=== PATIENT | female | born 1960 | race Caucasian/White ===

== ENCOUNTER 2025-06-18 15:56 | Emergency (ER) | payer MEDICARE, OTHER ==
[2025-06-18 16:03] VITALS: TEMP 98
--- NOTE | 2025-06-18 16:11 | ERPHSYRPT ---
- History of Present Illness Time Seen by Provider: 06/18/25 16:11 Source: patient Exam Limitations: no limitations Physician History: This is a 64-year-old white female patient who arrives to the emergency department at the direction of her nurse practitioner Patricia Schwartz. The patient fell and hit her head 5 days ago. She has had a headache ever since. Patient underwent a CT scan of the head without contrast today. Patient has a history of hypertension and depression. The CT scan of the head without contrast findings were read by me. They include no calvarial fracture, intra or extra- axial hematoma or parenchymal territorial hypodense areas suggestive of acute ischemic insult. There are brain involutional changes. There is findings that raise the possibility of increased intracranial hypertension. The patient was sent to us for further evaluation and management. Timing/Duration: day(s) (5) Quality: aching Head Pain Location: global Severity of Pain-Max: mild Severity of Pain-Current: mild Recent Head Trauma: head trauma > 24 hrs ago Associated Symptoms: denies symptoms Previous symptoms: no prior history Allergies/Adverse Reactions: No Known Drug Allergies Allergy (Verified 06/18/25 16:05) Home Medications: carvediloL [Carvedilol] 25 mg PO DAILY 06/26/23 [History] Duloxetine HCl 60 mg PO DAILY 06/18/25 [History] Lisinopril/Hydrochlorothiazide [Lisinopril-Hctz 10-12.5 mg Tab] 1 each PO DAILY 06/18/25 [History] Travel Risk - International Travel Have you traveled outside of the country in past 3 weeks: No - Emerging Infectious Disease Are you exhibiting symptoms associated with any current EIDs: No - Review of Systems Constitutional: No Symptoms Eyes: No Symptoms Ears, Nose, & Throat: No Symptoms Respiratory: No Symptoms Cardiac: No Symptoms Abdominal/Gastrointestinal: No Symptoms Genitourinary Symptoms: No Symptoms Musculoskeletal: No Symptoms Skin: No Symptoms Neurological: Headache Psychological: No Symptoms Endocrine: No Symptoms Hematologic/Lymphatic: No Symptoms Immunological/Allergic: No Symptoms All Other Systems: Reviewed and Negative - Past Medical History Pertinent Past Medical History: Yes Neurological History: No Pertinent History Cardiac History: No Pertinent History Respiratory History: No Pertinent History Endocrine Medical History: No Pertinent History Musculoskeletal History: Arthritis Other Medical History: THUMB [facility] OA SURGERY - Past Surgical History Past Surgical History: Yes Gastrointestinal: Cholecystectomy Musculoskeletal: Other Female Surgical History: Section Other Surgical History: 2x foot surgeries. hand surgery x2. elbow surgery - Social History Drug Use: none - Nursing Vital Signs Nursing Vital Signs: Initial Vital Signs Temperature 98 F 06/18/25 16:02 Pulse Rate 65 06/18/25 16:02 Respiratory Rate 12 06/18/25 16:02 Blood Pressure 97/65 06/18/25 16:02 O2 Sat by Pulse Oximetry 98 06/18/25 16:02 Pain Scale Pain Intensity 3 - Physical Exam General Appearance: no apparent distress, alert Eye Exam: PERRL/EOMI, eyes nml inspection Ears, Nose, Throat Exam: normal ENT inspection, moist mucous membranes Neck Exam: normal inspection, non-tender, supple, full range of motion Respiratory Exam: normal breath sounds, lungs clear, airway intact, No chest tenderness, No respiratory distress Cardiovascular Exam: regular rate/rhythm, normal heart sounds, normal peripheral pulses Gastrointestinal/Abdominal Exam: soft, normal bowel sounds, No tenderness Back Exam: normal inspection, normal range of motion, No CVA tenderness, No vertebral tenderness Extremity Exam: normal inspection, normal range of motion, pelvis stable Mental Status Exam: alert, oriented x 3, cooperative bottom wheeler Exam: normal hearing, normal speech, PERRL Coordination/Gait Exam: normal gait, normal cerebellar function Motor/Sensory Exam: no motor deficit, no sensory deficit Skin Exam: normal color, warm, dry Lymphatic Exam: No adenopathy SpO2 Interpretation: normal SpO2: 98 O2 Delivery: Room Air - Course Nursing assessment & vital signs reviewed: Yes - Progress Progress: re-examined Air Movement: good Progress Note: 06/18/25 17:13 My medical decision making and assignment of moderate complexity of this patient's medical issue today is based on review of the patient's past medical history, reviewed patient medication list, reviewed patient drug allergy list, history present illness and physical findings on examination. The workup in this patient does not necessitate any additional radiographic or laboratory studies in my view. We will obtain a teleneuro consultation to determine whether or not the patient needs any further workup either in the emergency department or outpatient. Differential diagnosis includes was not limited to postconcussion syndrome, intracranial hypertension, head contusion I spoke with Dr. Brewer, the teleneurologist. He evaluated the patient and reviewed the CT scan of the head without contrast. His final decision is that this patient has a normal CT scan of the head without contrast. She does not need any further ER or outpatient workup/radiographic studies. She is to use NSAIDs for headache pain control. Blood Culture(s) Obtained: No Antibiotics given: No Counseled pt/family regarding: diagnosis, need for follow-up Medical Desision Making - Independent Historian Additional History obtained from: Spouse - Diagnostic Testing Diagnostic test were ordered, analyzed, and reviewed by me: Yes Radiological Interpretation: Reviewed by me, Teleradiologist Report - Risk of complications Low Risk: Low risk of morbidity from additional dx testing or treatment - Departure Departure Disposition: Home Clinical Impression: Headache, Fall with no significant injury, Post-concussion headache Condition: Stable Critical Care Time: No Referrals: ILENE SCHWARTZ NP [Primary Care Provider, [facility]] - Follow up/PCP as directed Additional Instructions: Continue medications as prescribed. Use NSAIDs and Tylenol, if there are no contraindications to do so, for headache control. Call your primary care provider tomorrow, 06/19/2025, to make arrangements for follow-up appointment for further evaluation management
[2025-06-18 16:19] VITALS: PULSE 60; RESP 15
--- NOTE | 2025-06-18 17:02 | PCM.CONS ---
History of Present Illness - Neuro Consultation Date of Consultation Date: 06/18/25 ED Arrival Date & Time: 06/18/25 15:56 Requesting Provider: Dr. Tony Providers: Attending Provider: ED Provider: TRUDY TONY Consulting Provider: DG QUINTEROS MD Reason for Consult: Headache, CT findings cc:: The requesting physician will be sent a copy of the consult. - Chief Complaint Patient Subjective Stated Complaint: Headace - History of Present Illness HPI: The patient is a 64F with a PMH fibromyalgia, rare stress headaches, who presents after being referred by her primary care provider for a CT Head Report that was abnormal. The patient was recently in [place]. While going down some stairs in a poorly lit area, she and her missed a step, and she fell and hit her head, particularly near the left side of the face. She did not lose consciousness. This was about 5 days ago. Since then she has had some pressure like headache that is mild to moderate in intensity, with some mild photophobia and nausea, that responds well to over the counter ibuprofen and overall improving. Does not get worse with lying flat or sitting up. No dizziness. Uses glasses for visual acuity. No focal weakness, no focal numbness, no focal paresthesias. No neck pain, no neck stiffness. No recent unexpected weight loss, no fevers, no chills, no night sweats. No prior history of cancer, stroke, intracranial problems, seizures. Review of Systems - Review of Systems Review of Systems (Narrative): Pertinent positive and negative findings as per HPI. All other systems negative. - Past Medical History Past Medical History: Yes Neurological History: No Pertinent History ENT History: No Pertinent History Cardiac History: No Pertinent History Respiratory History: No Pertinent History Endocrine Medical History: No Pertinent History Musculoskelatal History: Arthritis, Fibromyalgia GI Medical History: No Pertinent History History: No Pertinent History Pyscho-Social History: No Pertinent History Reproductive Disorders: No Pertinent History Comment: THUMB [facility] OA SURGERY - Past Surgical History Past Surgical History: Yes Neuro Surgical History: No Pertinent History Cardiac History: No Pertinent History Respiratory Surgery: No Pertinent History GI Surgical History: Cholecystectomy Genitourinary Surgical Hx: No Pertinent History Musculskeletal Surgical Hx: Other Female Surgical History: Section Other Surgical History: 2x foot surgeries. hand surgery x2. elbow surgery - Social History Smoking Status: Never smoker Exposure to second hand smoke: No Alcohol: Rarely Drug Use: none - Social Determinants of Health Will the patient participate in the screening: Yes Do you worry about a steady place to live?: No Do you have any problems with any of the following?: No known problems In the past 12 months,have you had to go without utilities?: No Have you or anyone in your house had to go without enough: No Transportation Issues: No Has anyone in your support network made you feel unsafe?: No Physical Exam - Vital Signs Vital Signs: Vital Signs - 24 hr 06/18/25 06/18/25 16:02 16:11 Temperature 98 F Pulse Rate 60 Respiratory 15 Rate Blood Pressure 97/65 Blood Pressure 97/65 [Right Arm] O2 Sat by Pulse 98 98 Oximetry - Physical Exam Tele-Neuro Physical Exam (Narrative): General: no acute distress; sitting comfortably in bed HEENT: normocephalic, atraumatic, no conjunctival icterus, no conjunctival erythema Cardiovascular: regular rate on monitor; no peripheral edema Respiratory: breathing comfortably; symmetric chest expansion Psych: appropriate affect Neurological exam: Mental Status: awake, alert, oriented to self, place, time, and situation; intact fund of knowledge and memory; intact naming and repetition; fluent speech with no errors; no neglect Cranial nerves: PERRL (done with assistance of bedside RN); EOM intact with no nystagmus; normal and symmetric sensation to light touch in V1, V2, and V3 distributions; no facial droop; no dysarthria; no dysphonia; tongue midline; intact shoulder shrug Motor: normal bulk. no muscle atrophy. No tremors. No abnormal movements No pronator drift, normal orbiting, normal finger tapping RUE: able to keep elevated for 10 seconds with no downward drift LUE: able to keep elevated for 10 seconds with no downward drift RLE: able to keep elevated for 10 seconds with no downward drift LLE: able to keep elevated for 10 seconds with no downward drift Sensory: intact and symmetric sensation to light touch in arms and legs Coordination: no dysmetria on [id number] testing Reflexes: unable to do over telemedicine Gait: deferred Results - CT Impressions CT Head w/o contrast Status: image reviewed by me, report reviewed by me (No acute abnormalities noted. No hydrocephalus, no edema, no hemorrhage, no loss of hale-white matter differentiation, no effacement of the cisterns, no assymetries.) Impressions & Recommendations - Impression Acute Ischemic Stroke: No concern for acute stroke No concern for acute neurological findings Likely mild concussion after initial TBI CT Scan findings not concerning - ED Arrival Time ED Arrival Date & Time: ED Arrival Date and Time 06/18/25 15:56 Last known well time: - NIHSS NIHSS: 0 Is patient an IV TPA candidate (if no specify reason): No If not, specify reason:: No concern for acute ischemic stroke IV Thrombolysis Standard of Care: IV thrombolysis as a standard of care in acute stroke discussed with TRUDY TONY. Risk, benefits, and options of IV thrombolytic therapy for acute ischemic stroke were discussed with the patient/family BIRDIE GOOD. We discussed that use of IV tenecteplase is in line with national stroke guidelines. We discussed that risks of IV thrombolytic use include intracranial hemorrhage, other fatal bleeding risks, and angioedema. Alternatives of treatment, including not proceeding with thrombolytic therapy were discussed. - Recommendations Recommendations: Ms. Good has a mild concussion from her fall and head strike and recovering well. No signs of acute intracranial process on review of Head CT and neurological exam is reassuring - continue outpatient over the counter NSAIDs - stay hydrated - if no improvement in headaches over 1 week, or if worsening new symptoms, please seek medical care again. Patient was counselled on this Impression and recommendation were discussed with Dr. TRUDY TONY Thank you for allowing us to participate in this patient's care. Please call [facility] with questions, concerns, or change in patient's neurological status. This consult was performed via secure telemedicine audio/visual platform with RN assisting at bedside. Patient identity verified and consent obtained. TIQ recieved at 4:26 PM Neuro Cart Time: 4:40PM Delays in Patient Encounter: None Assessment & Plan (1) Concussion Status: Acute Qualifiers: Encounter type: initial encounter Loss of consciousness presence/duration: without LOC Qualified Code(s): S06.0X0A - Concussion without loss of consciousness, initial encounter Assessment & Plan: Over the counter Ibuprofen as directed on the bottle Stay hydrated If symptoms worsen or don't improve, please seek medical care Code(s): S06.0XAA - CONCUSSION WITH LOC STATUS UNKNOWN, INITIAL ENCOUNTER - Encounter Encounter: "The entirety of this encounter was performed via Telemedicine using audio and visual "
[2025-06-18 17:03] VITALS: BP 113/58
[2025-06-18 17:16] VITALS: O2SAT 98
== END 2025-06-18 17:25 | disposition home or self-care (01) ==
LOC: ED 15:56
DX: Z04.3 Encounter for examination and observation following other accident (principal); S06.0X0A Concussion without loss of consciousness, initial encounter; G44.319 Acute post-traumatic headache, not intractable; W10.9XXA Fall (on) (from) unspecified stairs and steps, initial encounter; I10 Essential (primary) hypertension; Z79.899 Other long term (current) drug therapy